=== PATIENT | female | born 1965 | race Caucasian/White ===

== ENCOUNTER 2022-02-10 16:30 | Inpatient (IN) | payer OTHER, MEDICAID ==
[~2022-02-10] VITALS: Ht 167.6 cm; Wt 85.7 kg
--- NOTE | 2022-02-10 17:00 | NUR ---
Pt BIBA ACLS coming from home. Pt is altered not responding to any questions appropiately. Pt is tracking and responds to painful stimuli. Pt connected to cradiac monitor. VSS. Skin intact. Pupils PERRLA. Unknown allergies and unkown history. Bed in lowest position.
[2022-02-10 17:01] VITALS: BP_SYST 155
--- NOTE | 2022-02-10 17:32 | NUR ---
EKG performed at by Tayler TREJO. Physician given copy of EKG for review.
--- NOTE | 2022-02-10 17:33 | NUR ---
Called CT to take pt to do CT stat but they stated CT is down right now. Cgarge RN notified.
--- NOTE | 2022-02-10 17:50 | NUR ---
Patient transported to radiology via gurney, accompanied by microbiological laboratory technician.
[2022-02-10 18:04] LABS: HEMATOCRIT 35.2 % (36-48); RED BLOOD CELL COUNT(AUTO) 3.79 MIL/uL (4.2-6.2)
[2022-02-10 18:17] LABS: MEAN CORPUSCULAR VOLUME 93 fL (79.0-98.0); PLATELET COUNT (AUTO) 229 K/uL (130-430); RED CELL DISTRIBUTION WIDTH 13.8 % (9.0-15.0); WHITE BLOOD COUNT (AUTO) 24.3 K/uL (4.8-10.8)
--- NOTE | 2022-02-10 18:21 | NUR ---
# 22 gauge angiocath placed to left AC. Use of asceptic technique. Opsite placed over site. Flushed with 10 cc of normal saline. No evidence of infiltration noted. Patient tolerated well.
[2022-02-10 18:45] LABS: ANION GAP 15 (5-15); CALCIUM 10.1 mg/dL (8.4-11.0); CHLORIDE 100 mmol/L (98-107); GLUCOSE 144 mg/dL (70-99); UREA NITROGEN, BLOOD 14 mg/dL (8-21)
[2022-02-10 19:00] LABS: ALANINE AMINOTRANSFERASE 36 U/L (12-78); ALBUMIN 3.3 g/dL (3.4-4.8); ASPARTATE AMINOTRANSFERASE 29 U/L (10-37)
[2022-02-10 19:07] LABS: GFR AFRICAN AMERICAN 83 mL/min (>90)
[2022-02-10 19:10] LABS: ACETAMINOPHEN < 1 ug/mL (1-30); ALCOHOL, BLOOD < 3 mg/dL (<10); POTASSIUM 2.5 mmol/L (3.5-5.1)
[2022-02-10] MEDS ORDERED: cefTRIAXone 1 GM IVPB PREMIX 50 ML IV ONE (20:45)
[2022-02-10] MEDS ORDERED: KCL 40 mEq in 100 mL (PREMIX) 40 MEQ, LIDOCAINE JECT 2% PF 100 MG 75 MG in NS 150 ML IV ONE (20:45)
[2022-02-10] MEDS ORDERED: NACL 0.9% 1,000 ML IV ONE (20:45)
[2022-02-10] MEDS ORDERED: LIDOCAINE JECT 2% PF 100 MG/5ML SYRINGE ONE (20:58)
[2022-02-10] MEDS ORDERED: KCL 20 mEq in 100 mL (PREMIX) 100 ML IV ONE (21:05)
[2022-02-10 21:59] LABS: BAND % (MANUAL) 10 % (0-6); BASOPHILS % (MANUAL) 0 % (0-2); EOSINOPHILS % (MANUAL) 0 % (0-7); LYMPHOCYTES % (MANUAL) 2 % (20-46); MONOCYTES % (MANUAL) 2 % (0-11)
--- NOTE | 2022-02-10 22:10 | NUR ---
Called [facility] for admission
--- NOTE | 2022-02-10 22:34 | NUR ---
Urine sample collected and sent to lab.
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
[2022-02-10 23:14] LABS: BILIRUBIN,URINE 1+ (NEGATIVE); BLOOD, URINE 2+ (NEGATIVE); CLARITY/URINE CLEAR (CLEAR); COLOR,URINE YELLOW (YELLOW); GLUCOSE,URINE NEGATIVE (NEGATIVE); KETONES,URINE 1+ (NEGATIVE); LEUKOCYTE ESTERASE ,URINE NEGATIVE (NEGATIVE); NITRITE, URINE NEGATIVE (NEGATIVE); PROTEIN URINE 2+ (NEGATIVE); UROBILINOGEN,URINE 0.2 (0.2-1.0)
[2022-02-11 01:08] LABS: BARBITURATE, URINE NEGATIVE (NEG <=200); METHAMPHETAMINES SCREEN,URINE NEGATIVE (NEG <=500); URINE AMPHETAMINE NEGATIVE (NEG <=500)
[2022-02-11 01:09] LABS: BENZODIAZEPINE, URINE NEGATIVE (NEG <=150); CANNABINOID, URINE NEGATIVE (NEG <=50); COCAINE, URINE NEGATIVE (NEG <=150); OPIATE, URINE NEGATIVE (NEG <=100); PHENCYCLIDINE SCREEN,URINE NEGATIVE (NEG <=25); UR TRICYCLIC ANTIDEPRESSANTS NEGATIVE (NEG <=300); URINE METHADONE NEGATIVE (NEG <=200); URINE OXYCODONE SCREEN NEGATIVE (NEG <=100); URINE PROPOXYPHENE SCREEN NEGATIVE (NEG <=300)
[2022-02-11 02:38] LABS: CALCIUM 9.9 mg/dL (8.4-11.0); CREATININE 0.92 mg/dL (0.55-1.30)
[2022-02-11 02:54] LABS: POTASSIUM 2.8 mmol/L (3.5-5.1)
[2022-02-11 02:59] LABS: BACTERIA,URINE None Seen /HPF (None Seen); WBC,URINE 0-3 /HPF (0-3)
[2022-02-11 03:00] LABS: MUCUS,URINE None Seen /LPF (None Seen)
[2022-02-11] MEDS ORDERED: KCL 40 mEq in 100 mL (PREMIX) 100 ML IV ONE (03:15)
[2022-02-11] MEDS ORDERED: LIDOCAINE 1% 10 MG/ML, 20 ML MDV INJ ONE (03:45)
[2022-02-11] MEDS ORDERED: ETOMIDATE 20 MG/ 10 ML VIAL (AMIDATE) ONE (04:00)
[2022-02-11] MEDS ORDERED: SUCCINYLCHOLINE CHLORIDE 20 MG/ML(QUELICIN) ONE (04:00)
[2022-02-11] MEDS ORDERED: ETOMIDATE 20 MG/ 10 ML VIAL (AMIDATE) IVP ONE (04:15)
[2022-02-11] MEDS ORDERED: ROCURONIUM BROMIDE 10 MG/ML (ZEMURON) IV ONE (04:15)
--- NOTE | 2022-02-11 04:23 | NUR ---
Patient not known to be of DNR status. Patient medicated with 20 mg of Etomidate for sedation prior to placement of ET tube. Respiratory therapy at bedside prior to placement. Size 7.5 ET tube placed by MD Benítez. Cuff inflated with 10 cc air. Auscultation of breath sounds over bilateral chest wall. ET tube secured with ET security device. O2 sats 100% pulse ox. PCXR ordered to check tube placement.
[2022-02-11] MEDS ORDERED: PROPOFOL DRIP 100 ML IV ONE ×2 (04:30→09:44)
--- NOTE | 2022-02-11 04:42 | NUR ---
# 16 FR Morales catheter with use of sterile technique. Bedside drainage bag placed below level of bladder. Pt tolerated procedure well.
--- NOTE | 2022-02-11 04:43 | NUR ---
# 18 FR OG tube placed. Placement checked by auscultation of instilled air into stomach and aspiration of gastric contents. Tubing taped in place to prevent dislodging. Patient tolerated well.
--- NOTE | 2022-02-11 04:46 | NUR ---
RAD at bedside.
[2022-02-11] MEDS: KCL 20 mEq in D5/0.45NS 1000mL 1,000 ML IV SCH (05:15)
[2022-02-11] MEDS ORDERED: KCL 20 mEq in 100 mL (PREMIX) 200 ML IV ONE (05:22)
--- NOTE | 2022-02-11 06:12 | NUR ---
Consent signed for Lumbar Puncture. Lumbar area cleansed with Iodine per physician. Physician numbed site prior to placement. Patient tolerated procedure well. CSF Specimens sent to lab.
[2022-02-11] MEDS ORDERED: VANCOMYCIN HCL 1,500 MG in NS 250 ML IV ONE (06:15)
[2022-02-11 06:24] VITALS: BP_SYST 164
--- NOTE | 2022-02-11 06:45 | NUR ---
RT NOTES 0645 FOUND PT ON PC15, R14 +5,50% FIO2 VENT SETTINGS PER ER MD GARCIA ORDERED. PT SATURATING MID 80S. [address] SCAN OF BRAIN. POST TRANSPORT, ASKED NOC NEIL VÁZQUEZ TO INCREASED SEDATION TO PT HAVING WOB [id number], VT ONLY AT LOW 200S. 0738 RT GOT CALLED, VENT ALARMING -- PT RR STILL HIGH, RT NOTICED PT PIP ONLY AT 20s AND PT NEEDS TO BE WELL-SEDATED, TOLD NEIL NAQVI IF COULD INCREASE SEDATION AND WILL TRY AC MODE VENT SETTINGS ON PT INSTEAD, PT SATURATION GRADUALLY GOES UP POST VENT SETTINGS CHANGES AND SEDATION INCREASED. WILL CONT TO MONITOR PT.
--- NOTE | 2022-02-11 06:50 | NUR ---
RT NOTES [address] PT [address] TO CT SCAN OF BRAIN. TRANSPORT PT VIA VENT ON PC SETTINGS. PT SATURATING 90%, PT SEEMED TO HAVE MORE WOB, NEEDS TO BE MORE SEDATED. WILL CONT TO MONITOR PT.
[2022-02-11] MEDS: AMPICILLIN SODIUM 2 GM in NS 100 ML IV SCH ×3 (07:00→14:54)
--- NOTE | 2022-02-11 07:22 | NUR ---
Handoff report given to NEIL Herman with opportunity for questions.
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
--- NOTE | 2022-02-11 07:50 | NUR ---
RR 40 WITH LABORED BREATHING, HR IN THE 140S, PROPOFOL INCREASED TO 15MCG/KG/MIN. WILL CONTINUE TO MONITOR AND TITRATE NEEDED.
--- NOTE | 2022-02-11 08:00 | NUR ---
RR 45BPM WITH LABORED BREATHING, HR IN THE 140S, PROPOFOL INCREASED TO 15MCG/KG/MIN. WILL CONTINUE TO MONITOR AND TITRATE NEEDED.
--- NOTE | 2022-02-11 08:05 | NUR ---
RR 40 BPM WITH LABORED BREATHING, HR IN THE 130S, PROPOFOL INCREASED TO 20MCG/KG/MIN. WILL CONTINUE TO MONITOR AND TITRATE NEEDED.
--- NOTE | 2022-02-11 08:10 | NUR ---
RR 40BPM WITH LABORED BREATHING, HR IN THE 140S, PROPOFOL INCREASED TO 25 MCG/KG/MIN. WILL CONTINUE TO MONITOR AND TITRATE NEEDED. Addendum: 02/11/22 at 1150 by [email or web address] TIME CORRECTION: [id number]
--- NOTE | 2022-02-11 08:10 | NUR ---
RR 40BPM WITH LABORED BREATHING, HR IN THE 140S, PROPOFOL INCREASED TO 20 MCG/KG/MIN. WILL CONTINUE TO MONITOR AND TITRATE NEEDED.
--- NOTE | 2022-02-11 08:20 | NUR ---
RR IN THE 40S WITH LABORED BREATHING, HR IN THE 130S, PROPOFOL INCREASED TO 30 MCG/KG/MIN. WILL CONTINUE TO MONITOR AND TITRATE NEEDED.
--- NOTE | 2022-02-11 08:25 | NUR ---
RR 40BPM WITH LABORED BREATHING, HR IN THE 140S, PROPOFOL INCREASED TO 35 MCG/KG/MIN. WILL CONTINUE TO MONITOR AND TITRATE NEEDED.
--- NOTE | 2022-02-11 08:30 | NUR ---
RT AT BEDSIDE TO ASSESS VENT SETTINGS.
--- NOTE | 2022-02-11 08:35 | NUR ---
RR 35 BPM WITH LABORED BREATHING, HR IN THE 130S, PROPOFOL INCREASED TO 40MCG/KG/MIN. WILL CONTINUE TO MONITOR AND TITRATE NEEDED.
--- NOTE | 2022-02-11 08:50 | NUR ---
RR 30 BPM WITH LABORED BREATHING, HR IN THE 120S, PROPOFOL INCREASED TO 40 MCG/KG/MIN. WILL CONTINUE TO MONITOR AND TITRATE NEEDED. Addendum: 02/11/22 at 1154 by [email or web address] CORRECTION 45MCG/KG/MIN.
[2022-02-11] MEDS ORDERED: LORazepam 2 MG/ML VIAL IVP PRN (09:30)
[2022-02-11] MEDS ORDERED: cefTRIAXone 2 GM VIAL ONE ×2 (09:37→20:26)
[2022-02-11] MEDS ORDERED: PANTOPRAZOLE SODIUM 40 MG/VIAL (PROTONIX) IVP ONE (09:45)
--- NOTE | 2022-02-11 10:01 | NUR ---
REPORTED TO DR. RC CONNELLY RESULTS PH 7.48, PCO2 27.4 PO2 218.8, HCO3 20.3. RECEIVED ORDER FOR LACTIC ACID STAT, AND DECREASE FIO2 TO 40%. IF PT IS BREATHING OVER Addendum: 02/11/22 at 1003 by [email or web address] OVER THE VENT DECREASE RR TO 12, RT DORIS MADE AWARE.
[2022-02-11 10:40] LABS: BASOPHILS % (AUTO) 0.1 % (0.0-2.0); EOSINOPHILS # (AUTO) 0.1 K/uL (0.0-0.4); EOSINOPHILS % (AUTO) 0.2 % (0.0-4.0); HEMATOCRIT 32.9 % (36-48); LYMPHOCYTES # (AUTO) 0.8 K/uL (1.0-5.5); LYMPHOCYTES % (AUTO) 3.6 % (20.5-51.5); MEAN CORPUSCULAR VOLUME 96 fL (79.0-98.0); MONOCYTES # (AUTO) 1.8 K/uL (0.0-1.0); MONOCYTES % (AUTO) 8.1 % (1.7-9.3); NEUTROPHILS # (AUTO) 19.8 K/uL (1.8-7.7); PLATELET COUNT (AUTO) 206 K/uL (130-430); RED BLOOD CELL COUNT(AUTO) 3.44 MIL/uL (4.2-6.2); RED CELL DISTRIBUTION WIDTH 13.9 % (9.0-15.0); WHITE BLOOD COUNT (AUTO) 22.5 K/uL (4.8-10.8)
--- NOTE | 2022-02-11 12:14 | NUR ---
RT AT BEDSIDE TO ASSESS PT. RR 21, HR 80, O2 SAT 99%. DECREASED PROPOFOL TO 40MCG/KG/MIN. WILL CONTINUE TO MONITOR AND TITRATE NEEDED.
--- NOTE | 2022-02-11 12:15 | NUR ---
RT NOTES 1215 PER ABG RESULTS, DR TATUM ORDERED TO TITRATE FIO2 TO 40%. WILL CONTINUE TO MONITOR PT. NEIL CASTRO.
--- NOTE | 2022-02-11 13:30 | NUR ---
PT'S RR 25, O2 SAT 100%, PT TOLERATING VENT WELL, PT RESPONDS TO TACTILE STIMULI, PROPOFOL TITRATED DOWN TO 35MC/KG/MIN. WILL CONTINUE TO MONITOR AND TITRATE NEEDED.
--- NOTE | 2022-02-11 13:38 | NUR ---
NOTED PT'S PUPILS UNEQUAL, LEFT PUPIL 2MM, RIGHT PUPIL 4MM. PAGED DR. TATUM TO REPORT. VSS 93/64 (78), HR 80, RR 23.
[2022-02-11 13:39] LABS: CSF APPEARANCE TURBID (CLEAR); CSF COLOR YELLOW (COLORLESS); CSF GLUCOSE 2 mg/dL (40-70)
--- NOTE | 2022-02-11 13:41 | NUR ---
REPORTED TO DR. TATUM THAT PT'S PUPILS ARE UNEQUAL, RECEIVED ORDER FOR CT WITHOUT CONTRAST STAT.
--- NOTE | 2022-02-11 13:42 | NUR ---
R/T MADE AWARE PT WILL BE GOING TO CT SCAN.
--- NOTE | 2022-02-11 13:49 | NUR ---
PT TAKEN TO CT SCAN NOW.
[2022-02-11 13:55] LABS: CSF LYMPHOCYTES 11 % (40-80); CSF NEUTROPHILS 89 % (0-6); CSF RED BLOOD CELL COUNT #1 123 /uL (0-0); CSF WHITE BLOOD CELL COUNT #1 135 /uL (0-5)
--- NOTE | 2022-02-11 14:08 | NUR ---
RT NOTES [address] SCAN BRAIN AGAIN, TRANSPORT PT VIA VENT ON AC 14 MODE, PT SATURATING 100%. NO DISTRESS NOTED. PT WELL SEDATED. NO INCIDENT PRIOR/POST TRANSPORT. PT BACK TO ER4 SAFELY. WILL CONTINUE TO MONITOR PT.
--- NOTE | 2022-02-11 14:20 | NUR ---
RECEIVED ORDER FOR DR. ODONNELL CSF GLUCOSE STAT, REQUEST NEURO CONSULT FOR PT FROM DR. TATUM. ORDERS CARRIED OUT. PAGED DR. TATUM TO MAKE HIM AWARE.
--- NOTE | 2022-02-11 14:28 | NUR ---
MADE FRANK, LAB STAFF, AWARE PT HAS NEW ORDER FOR CSF GLUCOSE. FRANK VERBALIZED UNDERSTANDING.
--- NOTE | 2022-02-11 14:30 | NUR ---
HR 80, RR 22, O2 SAT 100%, PT TOLERATING VENT WELL, PROPOFOL TITRATED DOWN TO 30MCG/KG/MIN.
[2022-02-11] MEDS: PROPOFOL DRIP 100 ML IV PRN ×2 (15:01→18:38)
--- NOTE | 2022-02-11 15:07 | NUR ---
RECEIVED ORDER FROM DR. ODONNELL FOR NEUROLOGIST CONSULT DR. Erin EDWARDS. ALEC, DESK SURGICAL ENDOSCOPIST MADE AWARE, HE STATED HE WILL CONTACT DR. EDWARDS AND MAKE HIM AWARE.
--- NOTE | 2022-02-11 15:11 | NUR ---
DR. TATUM MADE AWARE OF RECENT CT RESULTS, NNOS.
[2022-02-11] MEDS ORDERED: MEROPENEM 1 GM in NS 100 ML IV SCH (15:30)
--- NOTE | 2022-02-11 15:30 | NUR ---
HR 80, RR 22, O2 SAT 100%, PT TOLERATING VENT WELL, PROPOFOL TITRATED DOWN TO 25MCG/KG/MIN.
--- NOTE | 2022-02-11 16:12 | NUR ---
FRAN HERMAN, CLAIMS PROCESSOR AT BEDSIDE TO ASSESS PT AND MADE AWARE OF PT'S PURULENT URINE AND UNEQUAL PUPILS. NNOs.
--- NOTE | 2022-02-11 16:20 | NUR ---
SPOKE TO [employer] SECOND TIME AND MADE HER AWARE THAT THE CMP FOR RESULTS ARE NEEDED STAT. SHE SAID SHE WILL ATTEMPT TO EXPIDITE RESULTS.
[2022-02-11 16:25] LABS: CALCIUM 9.4 mg/dL (8.4-11.0); CREATININE 1.12 mg/dL (0.55-1.30); POTASSIUM 3.3 mmol/L (3.5-5.1); TOTAL BILIRUBIN 0.9 mg/dL (0.0-1.0)
[2022-02-11 16:26] LABS: ALBUMIN 2.3 g/dL (3.4-4.8)
--- NOTE | 2022-02-11 16:27 | NUR ---
HR 73, RR 23, O2 SAT 100%, PT TOLERATING VENT WELL, PROPOFOL TITRATED DOWN TO 20MCG/KG/MIN.
[2022-02-11 16:50] LABS: PHOSPHORUS 1.9 mg/dL (2.7-4.5)
--- NOTE | 2022-02-11 17:02 | NUR ---
RECEIVED NEW CONTACT INFO FROM PT'S DAUGHTER - JAMES RODNEY, CELL [phone]; PT'S SISTER FOR NEXT OF KIN - SAY RODNEY CELL [phone]. PT'S DAUGHTER CONTACT INFO GIVEN TO DR. CHRISTENSEN WHO STATED HE WILL CALL TO UPDATE FAMILY ON POC.
--- NOTE | 2022-02-11 17:35 | NUR ---
DR. CHRISTENSEN AT BEDSIDE TO ASSESS PT. DR. CHRISTENSEN REQUESTED THAT DEXAMETHOSONE IVP BE GIVEN 10 MIN PRIOR TO GIVING ROCEPHIN IVPB. NOC SHIFT NURSE WILL BE MADE AWARE.
[2022-02-11] MEDS ORDERED: DEXAMETHASONE SOD PHOSPHATE 4 MG/ML VIAL IVP ONE (18:00)
[2022-02-11] MEDS ORDERED: DEXAMETHASONE SOD PHOSPHATE 4 MG/ML VIAL IVP SCH (18:00)
--- NOTE | 2022-02-11 18:39 | NUR ---
DR. TATUM AT BEDSIDE TO ASSESS PT. CHARGE NURSE LAN MADE THIS RN AWARE, PT'S CSF IS POSITIVE FOR GM POSITIVE COCCI IN PAIRS. DR. TATUM MADE AWARE. NNOs.
--- NOTE | 2022-02-11 19:13 | NUR ---
REPORTED TO DR. TATUM MAG 2.7, PHOS 1.9, LACTIC 2.5, K+= 3.3. RECEIVED ORDER FOR KPHOS 30MMOLS X1 IV NOW. ENDORSED ALL CARE TO NEIL VÁZQUEZ. ALL QUESTIONS ADDRESSED.
--- NOTE | 2022-02-11 20:05 | NUR ---
Pt received in stable condition. Current vent settings appropiate at this time. No signs of respiratory distress. No signs of acute distress/discomfort.
[2022-02-11] MEDS: DEXAMETHASONE SOD PHOSPHATE 4 MG/ML VIAL IVP SCH (20:34)
[2022-02-11] MEDS ORDERED: cefTRIAXone 1 GM IVPB PREMIX 50 ML IV SCH (21:00)
--- NOTE | 2022-02-11 21:02 | NUR ---
Per outside Pharmacy [facility] there is no Kphos on the floor and the nurse is not allowed to make it. Pt is not in the ICU pt is held in the ER. Spoke to Fredrick TREJO pts nurse and she was explained what [facility] the Pharmacy said and also the nurse will have to call the MD to let him know.
[2022-02-11 21:12] VITALS: BP_SYST 119
[2022-02-11 21:15] VITALS: BP_SYST 122
[2022-02-11] MEDS ORDERED: POTASSIUM CHLORIDE 30 MEQ in NS 250 ML IV ONE (22:45)
[2022-02-11 23:27] VITALS: BP_SYST 117
[2022-02-11] MEDS ORDERED: KCL 20 mEq in 100 mL (PREMIX) 100 ML IV ONE (23:30)
[2022-02-11] MEDS ORDERED: KCL 10 mEq in 50 mL (PREMIX) 50 ML IV ONE (23:30)
[2022-02-12] VITALS (17 sets, daily range): BP systolic 137–189
--- NOTE | 2022-02-12 00:15 | NUR ---
750 cc of cloudy/ dark yellow urine emptied from FC.
[2022-02-12] MEDS ORDERED: NAPH,MB-DB/K PH,MBDB 250 MG TAB ONE (00:35)
--- NOTE | 2022-02-12 00:35 | NUR ---
Meropenem 2 gm not available in ER stock. Requested from senior warehouse clerk at this time.
[2022-02-12] MEDS: MEROPENEM 2 GM in NS 100 ML IV SCH ×4 (02:33→23:56)
[2022-02-12] MEDS ORDERED: MEROPENEM 1 GM VIAL IV ONE ×2 (02:33→23:40)
[2022-02-12] MEDS: KCL 20 mEq in D5/0.45NS 1000mL 1,000 ML IV SCH ×2 (02:33→23:56)
[2022-02-12] MEDS: DEXAMETHASONE SOD PHOSPHATE 4 MG/ML VIAL IVP SCH ×5 (03:49→23:37)
--- NOTE | 2022-02-12 04:41 | NUR ---
Pt in no acute distress. Breathing adequately with current vent settings. No signs of discomfort/pain noted. Continue titrating Propofol as tolerated.
[2022-02-12] MEDS ORDERED: VANCOMYCIN HCL 1000 MG/VIAL IV ONE (05:20)
[2022-02-12] MEDS ORDERED: VANCOMYCIN HCL 500 MG/VIAL IV ONE (05:20)
[2022-02-12] MEDS: VANCOMYCIN HCL 1,500 MG in NS 250 ML IV SCH (05:27)
[2022-02-12 06:31] LABS: CALCIUM 8.7 mg/dL (8.4-11.0); CREATININE 0.86 mg/dL (0.55-1.30)
[2022-02-12 06:43] LABS: ALBUMIN 2.1 g/dL (3.4-4.8); TOTAL BILIRUBIN 0.4 mg/dL (0.0-1.0)
--- NOTE | 2022-02-12 07:07 | NUR ---
Spoke to MD Ybarra regarding Troponin level of 3868. NNO at this time.
[2022-02-12 07:48] LABS: BASOPHILS % (AUTO) 0.1 % (0.0-2.0); EOSINOPHILS % (AUTO) 0.2 % (0.0-4.0); HEMATOCRIT 29.7 % (36-48); LYMPHOCYTES # (AUTO) 0.6 K/uL (1.0-5.5); LYMPHOCYTES % (AUTO) 3.6 % (20.5-51.5); MEAN CORPUSCULAR VOLUME 93 fL (79.0-98.0); MONOCYTES # (AUTO) 0.9 K/uL (0.0-1.0); MONOCYTES % (AUTO) 5.4 % (1.7-9.3); NEUTROPHILS # (AUTO) 14.3 K/uL (1.8-7.7); NEUTROPHILS % (AUTO) 90.7 % (40.0-70.0); PLATELET COUNT (AUTO) 178 K/uL (130-430); RED CELL DISTRIBUTION WIDTH 14.3 % (9.0-15.0); WHITE BLOOD COUNT (AUTO) 15.7 K/uL (4.8-10.8)
[2022-02-12] MEDS: NAPH,MB-DB/K PH,MBDB 250 MG TAB PO SCH ×2 (09:09→22:05)
[2022-02-12] MEDS: PANTOPRAZOLE SODIUM 40 MG/VIAL (PROTONIX) IVP SCH (09:15)
[2022-02-12] MEDS ORDERED: cefTRIAXone 2 GM VIAL ONE (09:16)
[2022-02-12] MEDS: PROPOFOL DRIP 100 ML IV PRN ×2 (10:41→23:55)
[2022-02-12] MEDS ORDERED: K PHOS 30 MM in NS 250 ML IV ONE (11:00)
--- NOTE | 2022-02-12 12:10 | NUR ---
RT NOTE: 1210 Pt moved from ER 4 to ICU (128A). Pt was on vent during transport. No issues transporting and transferring. Will continue to monitor pt.
--- NOTE | 2022-02-12 12:15 | NUR ---
Patient will be admitted to care of SANTHOSH TREJO. Admitted to ICU unit. Will go to room 128. Belongings list completed. Complete and up to date summary report printed. SBAR report to be given at bedside with opportunity for questions.
--- NOTE | 2022-02-12 12:30 | NUR ---
TO ICU RECEIVED PT IN ROOM 128-A VIA GURNEY, TRANSFERRED TO BED, PT MECHANICALLY INTUBATED, OGT IN PLACE. IV IN RIGHT A/C PROPOFOL DRIP, LEFT A/C IVF D5 1/2 NS WITH 20 MEQ KCL. PT HAS A GUILLERMO CATHETER WITH GERARDO COLOR URINE. REDNESS NOTED TO RIGHT ANKLE, SACRAL/COCCYX, RIGHT HEEL PINK.
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
[2022-02-12 16:13] LABS: CSF PROTEIN 1 mg/dL (15-45)
[2022-02-12 17:26] LABS: THYROID STIMULATING HORMONE 0.33 uIu/mL (0.34-4.82)
--- NOTE | 2022-02-12 18:50 | NUR ---
RENTAL BED AIR LOSS MATTRESS DELIVERED, TRANSFERRED PT BY NURSING STAFF TO THE RENTAL BED.
--- NOTE | 2022-02-12 19:30 | NUR ---
REPORT HANDOFF REPORT GIVEN TO QUANG TREJO.
--- NOTE | 2022-02-12 19:35 | NUR ---
Assumed pt care report received from Vivienne TREJO, met pt with the family at the bedside pt dx with bacteria Meningits on isolation precaution, intubated unresponsive ETT to vent a/c 14 TV 400 FIO2 30% peep 5 O2 SAT tolerating well no siign of distress noted, OGT clamped no feeding, perales to gravity cloudy nicolasa urine, family education on care plan and they are concerned about pr's care plan.
--- NOTE | 2022-02-12 21:30 | NUR ---
@2039 Turned off the Propofol for baseline neuro assessment family also at the bedside, pt open eyes to pain moves rt upper and lower extremities brisk movement , but minimal to no movement on the left upper and lower extremities, eyes open lethargic sluggish eyes reaction,explained findings to pt's family, Dr lakshmi Ziegler notified no new orders received, pt repositioned for comfort
--- NOTE | 2022-02-12 21:35 | NUR ---
Patient family expressed their frustration because of the care pt is receiving ALBERT demanded that she wanteD THE PATIENT TO BE TRANSFER to another hospital, ROSY TREJO spoke to family so also the warehouse stock clerk. @[address] Abdalla called and he spoke pt's family COLE step daughter, CUCA, DILIP and Olivia via telephone. @2033 Dr Supriya Ziegler Neorologist discussed pt's care condition with family and there was a pending EEG order. @2048 Dr Briggs also spoke to COLE about pt's condition Md also said that this was second time he explained pt's condition and care plan to COLE After all discussion and clarification pt's family verbalized understanding and express satisfaction of care in progress
--- NOTE | 2022-02-12 22:37 | NUR ---
Dr Abdalla was here to discuss further with family on care plan but they left already.
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
[2022-02-12] MEDS ORDERED: KCL 20 mEq in D5/0.45NS 1000mL 1,000 ML IV ONE (23:39)
[2022-02-12] MEDS: hydrALAZINE HCL 20 MG/ML VIAL IVP PRN (23:39)
[2022-02-13] VITALS (31 sets, daily range): BP systolic 139–179
[2022-02-13] MEDS: hydrALAZINE HCL 20 MG/ML VIAL IVP PRN ×3 (03:30→21:38)
--- NOTE | 2022-02-13 04:30 | NUR ---
Complete bed bath with CHG linen changed repositioned for comfort tolerated well vitals stable afebrile tolerated well.
[2022-02-13] MEDS: VANCOMYCIN HCL 1,500 MG in NS 250 ML IV SCH (05:31)
[2022-02-13] MEDS: DEXAMETHASONE SOD PHOSPHATE 4 MG/ML VIAL IVP SCH ×3 (05:31→18:49)
[2022-02-13 06:36] LABS: BASOPHILS % (AUTO) 0.4 % (0.0-2.0); EOSINOPHILS % (AUTO) 0.1 % (0.0-4.0); HEMATOCRIT 31.4 % (36-48); LYMPHOCYTES # (AUTO) 0.9 K/uL (1.0-5.5); LYMPHOCYTES % (AUTO) 7.9 % (20.5-51.5); MEAN CORPUSCULAR VOLUME 93 fL (79.0-98.0); MONOCYTES # (AUTO) 0.7 K/uL (0.0-1.0); MONOCYTES % (AUTO) 6.3 % (1.7-9.3); NEUTROPHILS # (AUTO) 9.3 K/uL (1.8-7.7); NEUTROPHILS % (AUTO) 85.3 % (40.0-70.0); PLATELET COUNT (AUTO) 183 K/uL (130-430); RED BLOOD CELL COUNT(AUTO) 3.38 MIL/uL (4.2-6.2); WHITE BLOOD COUNT (AUTO) 10.9 K/uL (4.8-10.8)
[2022-02-13 06:40] LABS: CALCIUM 8.8 mg/dL (8.4-11.0); CREATININE 0.71 mg/dL (0.55-1.30); POTASSIUM 3.9 mmol/L (3.5-5.1)
[2022-02-13 06:51] LABS: ALBUMIN 1.9 g/dL (3.4-4.8); TOTAL BILIRUBIN 0.3 mg/dL (0.0-1.0)
[2022-02-13] MEDS: MEROPENEM 2 GM in NS 100 ML IV SCH (08:25)
[2022-02-13] MEDS: PANTOPRAZOLE SODIUM 40 MG/VIAL (PROTONIX) IVP SCH (08:26)
[2022-02-13] MEDS: NAPH,MB-DB/K PH,MBDB 250 MG TAB PO SCH ×2 (12:23→20:55)
[2022-02-13] MEDS: PROPOFOL DRIP 100 ML IV PRN ×2 (12:26→20:54)
--- NOTE | 2022-02-13 18:12 | NUR ---
Dietitian Recommendations * Remain NPO * Recommend Vital AF @ 60mL/hr x 24h + free water flushes: 200mL TID via OGT - Provides daily 1728 kcals, 108g protein, 1768mL FW (1168mL EN only) - Equals 115% low end kcals, 92% upper end protein, 118% low end fluids * Recommend daily MVI + 250mg VIT C BID for wound care Please refer to nutrition assessment for details, thanks! CC, MPH, RDN
[2022-02-13] MEDS: KCL 20 mEq in D5/0.45NS 1000mL 1,000 ML IV SCH (18:50)
--- NOTE | 2022-02-13 19:44 | NUR ---
@1916 Assumed pt care bedside report received from SVITLANA TREJO. Dr Supriya Ziegler was here spoke to family already pending CT SCAN order. Propofol turned off for baseline Neuro assessment, ongoing support and pt and family education to alleviates anxiety.
--- NOTE | 2022-02-13 20:50 | NUR ---
Propofol turned offfor about 1 1/2hr baseline neuro assessment done noted bilateral upper extremities inner rotation with abnormal extension to pain no movement in left lower extremities, eyes unequal reaction, left eyes downward gaze deviation right eyes sluggish reaction 3/3, non verbal intubated, ETT to vent FIO2 30%tachypneic RR 33 O2 SAT 98%tolerating well clear lungs sounds throughout oral care done suctioned for airway clearance, OGT tube placement checked verified by auscultation, perales to gravity cloudy dark yellow urine, perineal perales care, and pt repositioned for comfort. Family at the bedside education on pt's condition, care plan and they verbalized understanding. Ongoing monitoring and treat as per care plan.
[2022-02-14] VITALS (28 sets, daily range): BP systolic 109–164
[2022-02-14] MEDS: KCL 20 mEq in D5/0.45NS 1000mL 1,000 ML IV SCH ×2 (01:29→13:15)
[2022-02-14] MEDS ORDERED: KCL 20 mEq in D5/0.45NS 1000mL 1,000 ML IV ONE (01:31)
--- NOTE | 2022-02-14 03:30 | NUR ---
Complete bed bath with CHG wipes oral care suctioned and pt repositioned for comfort vitals signs stable afebrile, still upper extremities inner rotation and extensor non verbal, cough and gag present. ETT to vent FIO2 30% STAGE 1 and 2 redness on the COCCYX foam placed and pillow support
[2022-02-14] MEDS: PROPOFOL DRIP 100 ML IV PRN (03:46)
[2022-02-14] MEDS: VANCOMYCIN HCL 1,500 MG in NS 250 ML IV SCH (05:18)
--- NOTE | 2022-02-14 05:50 | NUR ---
Rounds with Dr Abdalla at the beside pt's neuro assessment done, Propofol turned off as per MD'S order, eyes unequal reaction right eye size 3 sluggish, with deviation on the left eye size 4 sluggish no blink to threat non tracking, left lower extremities flaccid, right lower extremities withdraws to pain, non verbal intubated no new order received neuro deficit discussed, and planned for CT follow up exam order by Dr JERRY FRANCO
--- NOTE | 2022-02-14 07:10 | NUR ---
Change of shift bedside report given to SVITLANA RN with neuro assessment deficit noted.
[2022-02-14 07:14] LABS: PLATELET COUNT (AUTO) 181 K/uL (130-430)
[2022-02-14 08:01] LABS: CALCIUM 8.2 mg/dL (8.4-11.0); CREATININE 0.7 mg/dL (0.55-1.30); POTASSIUM 3.7 mmol/L (3.5-5.1)
[2022-02-14 08:26] LABS: BASOPHILS % (AUTO) 0.2 % (0.0-2.0); EOSINOPHILS # (AUTO) 0.1 K/uL (0.0-0.4); EOSINOPHILS % (AUTO) 1.5 % (0.0-4.0); HEMATOCRIT 29.7 % (36-48); LYMPHOCYTES # (AUTO) 0.9 K/uL (1.0-5.5); LYMPHOCYTES % (AUTO) 13.1 % (20.5-51.5); MEAN CORPUSCULAR VOLUME 94 fL (79.0-98.0); MONOCYTES # (AUTO) 0.4 K/uL (0.0-1.0); MONOCYTES % (AUTO) 6.3 % (1.7-9.3); NEUTROPHILS # (AUTO) 5.3 K/uL (1.8-7.7); NEUTROPHILS % (AUTO) 78.9 % (40.0-70.0); RED BLOOD CELL COUNT(AUTO) 3.15 MIL/uL (4.2-6.2); RED CELL DISTRIBUTION WIDTH 14.4 % (9.0-15.0); WHITE BLOOD COUNT (AUTO) 6.7 K/uL (4.8-10.8)
[2022-02-14] MEDS: PANTOPRAZOLE SODIUM 40 MG/VIAL (PROTONIX) IVP SCH (08:41)
[2022-02-14] MEDS: NAPH,MB-DB/K PH,MBDB 250 MG TAB PO SCH ×2 (08:41→20:56)
--- NOTE | 2022-02-14 09:00 | NUR ---
DR EDWARDS AT BEDSIDE, EDUCATED FAMILY ON PLAN OF CARE, REPEAT EEG AND HEAD CT TO BE PERFORMED. FAMILY VOICED UNDERSTANDING.
--- NOTE | 2022-02-14 11:27 | NUR ---
[id number] pt [address] scan. pt placed back to vent. pt tolerating vent settings. Addendum: 02/14/22 at 1129 by Griselda Diaz RT Amended: Links added.
[2022-02-14 14:06] LABS: VDRL, CSF Non Reactive (Non Rea:<1:1)
--- NOTE | 2022-02-14 17:00 | NUR ---
DR CHRISTENSEN DISCUSSED PLAN OF CARE, CT RESULTS, BACTERIAL MENINGITIS WITH FAMILY, FAMILY VOICED UNDERSTANDING.
--- NOTE | 2022-02-14 17:30 | NUR ---
PATIENT ON CPAP TRIAL PER DR SMITH
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
--- NOTE | 2022-02-14 20:45 | NUR ---
Dr Olivares was here updates on pt's condition mentioned to MD about pt's neuro assessment facial droop, eyes unequal, posturing of upper extremities with inner rotation, flaccid on left lower extremity and withdraws on right lower extremity. Orders received Keppra IV and MRI. MD also spoke to COLE TREJO pt's step daughter at the bedside
--- NOTE | 2022-02-14 20:59 | NUR ---
Clarification of orders Received report from Jaison mentioned that she received order from Dr JERRY FRANCO to restart Dexamethasone 4mg ivp BID but the order was not found on pt's profile. so this RN called MD for clarification order received as stated, placed and awaiting pharmacist approval.
[2022-02-14] MEDS: levETIRAcetam 1,000 MG in NS 100 ML IV SCH (21:23)
[2022-02-14] MEDS ORDERED: KCL 20 mEq in D5/0.45NS 1000mL 1,000 ML IV SCH (22:00)
[2022-02-14] MEDS: DEXAMETHASONE SOD PHOSPHATE 4 MG/ML VIAL IVP SCH (22:55)
[2022-02-14] MEDS ORDERED: DEXAMETHASONE SOD PHOSPHATE 4 MG/ML VIAL ONE (22:58)
[2022-02-15] VITALS (23 sets, daily range): BP systolic 117–174
[2022-02-15 06:40] LABS: CALCIUM 8.6 mg/dL (8.4-11.0); CREATININE 0.72 mg/dL (0.55-1.30)
[2022-02-15 06:48] LABS: ALBUMIN 1.8 g/dL (3.4-4.8); TOTAL BILIRUBIN 0.5 mg/dL (0.0-1.0)
--- NOTE | 2022-02-15 07:10 | NUR ---
Bedside report given to SVITLANA TREJO at the bedside neuro assessment done pt with neuro deficit no sedation. Reminded her of the MRI order by Dr Olivares.
[2022-02-15 07:50] LABS: BASOPHILS % (AUTO) 0.3 % (0.0-2.0); EOSINOPHILS # (AUTO) 0.1 K/uL (0.0-0.4); EOSINOPHILS % (AUTO) 0.9 % (0.0-4.0); HEMATOCRIT 30.1 % (36-48); LYMPHOCYTES % (AUTO) 10.9 % (20.5-51.5); MEAN CORPUSCULAR VOLUME 94 fL (79.0-98.0); MONOCYTES # (AUTO) 0.6 K/uL (0.0-1.0); MONOCYTES % (AUTO) 6.6 % (1.7-9.3); NEUTROPHILS # (AUTO) 7.2 K/uL (1.8-7.7); NEUTROPHILS % (AUTO) 81.3 % (40.0-70.0); PLATELET COUNT (AUTO) 185 K/uL (130-430); RED CELL DISTRIBUTION WIDTH 14.3 % (9.0-15.0); WHITE BLOOD COUNT (AUTO) 8.8 K/uL (4.8-10.8)
[2022-02-15] MEDS: PANTOPRAZOLE SODIUM 40 MG/VIAL (PROTONIX) IVP SCH (09:43)
[2022-02-15] MEDS: DEXAMETHASONE SOD PHOSPHATE 4 MG/ML VIAL IVP SCH (09:44)
[2022-02-15] MEDS: levETIRAcetam 1,000 MG in NS 100 ML IV SCH (09:45)
--- NOTE | 2022-02-15 10:37 | NUR ---
ICU DIRECTOR PETE AND ELECTRICAL TECHNOLOGY INSTRUCTOR MADE AWARE OF DR ORDER FOR MRI OF THE HEAD. TRANSFER ARRANGEMENTS NEED TO BE ARRANGED AND CASE MANAGEMENT STATED THEY WILL BEGIN COORDINATING.
--- NOTE | 2022-02-15 19:22 | NUR ---
Change of shift bedside report received from CECILIO TREJO. Planned alredy in place for pt to be transfer to [facility] consent signed by family.
--- NOTE | 2022-02-15 19:30 | NUR ---
SPOKE TO PEDRO FROM NATALIA, STATED THAT PATIENT TRANSFER IS ACCEPTED, BED NUMBER PROVIDED AND REPORT NUMBER. TRANSFER CONSENT SIGNED AND IN PATIENTS CHART BY SISTER AND RN. ONLY PATIENT BELONGING IS HAIR CLIP AT BEDSIDE. ENDORSED TRANSFER TO NET WEB APPLICATION DEVELOPER RN QUANG.
--- NOTE | 2022-02-15 19:37 | NUR ---
PT transfer arrangement done to [facility] ICU room 2315 report given to Maria De Jesus Mcclendon RN
--- NOTE | 2022-02-15 20:32 | NUR ---
PT ready to be transfer to [facility] as planned bedside report given to WINNIE SOSA RN with [facility] critical care ride as at this time pt unresponsive, sinus rhythm HR 62's blood pressure stable 149/78 still on ventilator support A/C mode rate 10 TV 400 FIO2 30% PEEP 5 tolerating well O2 SAT97%, NEURO assessment done pt unresponsive to command not on any sedation as at this time,eyes open non tracking but blink to threat, sluggish reaction to light right 3/left 4, bilateral upper extremities abnormal extension to pain inner lopez rotation to pain, left lower extremity flaccid to pain, right lower leg withdraw to pain, OGT placement checked verified by auscultation, clamped en route perales urine emtied 150 cc mentioned pt's skin redness, stage 1 and 2 on the coccyx family also aware. PICC line flushed with NS patent site dry and intact with dressing. Family present at the bedside were Collette and Olivia, only belonging which was hair clip given to pt's sister Collette.
== END 2022-02-15 20:38 | disposition short-term general hospital (02) | DRG 871 ==
LOC: SED 16:30 → UNDOADMIN 02-11 05:15 → SIC 02-11 05:15 → UNDODISIN 02-15 20:38
PROVIDERS: ADMIT Internal Medicine; ATTEND Internal Medicine
PROC: 009U3ZX Drainage of Spinal Canal, Percutaneous Approach, Diagnostic (ICD-10-PCS; principal; 2022-02-11)
DX: A40.3 Sepsis due to Streptococcus pneumoniae (principal); G00.9 Bacterial meningitis, unspecified; J96.00 Acute respiratory failure, unspecified whether with hypoxia or hypercapnia; G93.6 Cerebral edema; G93.40 Encephalopathy, unspecified; I24.8 Other forms of acute ischemic heart disease; E87.6 Hypokalemia; H57.02 Anisocoria; Z20.822 Contact with and (suspected) exposure to COVID-19; I10 Essential (primary) hypertension; Z86.61 Personal history of infections of the central nervous system; Z88.8 Allergy status to other drugs, medicaments and biological substances
CPT/HCPCS: 36415; 36600; 70450-TC; 71045; 76376; 80048; 80053; 80061; 80307; 81000; 82140; 82800-TC; 82803-TC; 82947; 83605; 83735; 83880; 84100; 84157; 84443; 84484; 85007; 85025; 85027; 85048; 85610-TC; 85730-TC; 86592; 86788; 86789; 87040; 87070-TC; 87081; 87086; 87186-TC; 87205-TC; 89051-TC; 93005; 93306; 94002; 94003; 94640; 94760; 95816; 96365; 96368; 99291; C9113; G0480; G0481; G0482; J0290; J0330; J0360; J0696; J1100; J1953; J2185; J2704; J3370; J3480; J3490; J7050; J7060